=== PATIENT | male | born 1960 | race African-American/Black ===

== ENCOUNTER 2018-09-16 22:55 | Emergency (ER) | payer BC ==
[2018-09-16] MEDS ORDERED: Oxymetazoline HCl 0.05% ( 15 ML ) NASAL SCH (23:30)
== END 2018-09-17 00:22 | disposition home or self-care (01) ==
LOC: ERS 22:55
DX: R04.0 Epistaxis (principal); E78.5 Hyperlipidemia, unspecified; I10 Essential (primary) hypertension; Z86.73 Personal history of transient ischemic attack (TIA), and cerebral infarction without residual deficits; F17.210 Nicotine dependence, cigarettes, uncomplicated; Z79.899 Other long term (current) drug therapy; Z79.82 Long term (current) use of aspirin
CPT/HCPCS: 99283

== ENCOUNTER 2020-07-04 05:21 | Observation (INO) | payer BC ==
[2020-07-04] MEDS ORDERED: Nitroglycerin 0.4 MG TAB 1 EACH ONE (05:38)
[2020-07-04] MEDS ORDERED: Atropine Sulfate 1 mg/10 ml Syringe ONE (05:46)
[2020-07-04 05:54] LABS: #Basophils 0.1 thou/uL (0.0-0.2); #Eosinphils 0.1 thou/uL (0.0-0.7); #Lymphocytes 2.4 thou/uL (1.20-3.40); #Monocytes 0.5 thou/uL (0.11-0.59); #Neutrophils 4.3 thou/uL (1.40-6.50); %Basophils 0.9 % (0.0-1.0); %Eosinophils 1.5 % (0.0-10.0); %Lymphocytes 32.4 % (21.0-51.0); %Monocytes 7.1 % (0.0-10.0); %Neutrophils 58.1 % (42.0-75.0); Hemoglobin 12.6 g/dL (14.0-18.0); Mean Corpuscular Hemoglobin 29.3 pg (27.0-31.0); Mean Corpuscular Volume 86.2 fL (78.0-98.0); Mean Platelet Volume 8.1 fL (7.4-10.4); Platelet Count 257 thou/uL (130-400); RBC Distribution Width 12.8 % (11.5-14.5); White Blood Cell (WBC) Count 7.3 thou/uL (4.8-10.8)
[2020-07-04 06:11] LABS: ALT (SGPT) 27 U/L (8-55); AST (SGOT) 26 U/L (5-34); Albumin 3.6 g/dL (3.5-5.0); Alkaline Phosphatase 62 U/L (40-110); Anion Gap 13 mmol/L (10-20); BUN (Urea Nitrogen) 17 mg/dL (8.4-25.7); Bilirubin, Total 0.3 mg/dL (0.2-1.2); Calc. Creatinine Clearance 0 mL/min (70-130); Calcium 8.6 mg/dL (7.8-10.44); Carbon Dioxide 25 mmol/L (22-29); Chloride 104 mmol/L (98-107); Globulin 3.9 g/dL (2.4-3.5); Glucose 106 mg/dL (70-105); Potassium 4.1 mmol/L (3.5-5.1); Protein, Total 7.5 g/dL (6.0-8.3); Sodium 138 mmol/L (136-145)
[2020-07-04] MEDS ORDERED: Nitroglycerin 2% Ointment 1 INCH/1 GM Packet ONE (06:13)
[2020-07-04] MEDS ORDERED: Morphine 4 MG/ML VIAL ONE (06:58)
[2020-07-04 09:20] LABS: Troponin I 0.531 ng/mL (< 0.028)
[2020-07-04] MEDS ORDERED: Enoxaparin Sodium 120 MG/0.8 ML SYRINGE SC SCH (09:33)
[2020-07-04 09:43] VITALS: BMI 41.5
[2020-07-04] MEDS ORDERED: Iopamidol 370 76% 100 ML VIAL ONE (10:12)
[2020-07-04] MEDS ORDERED: Enoxaparin Sodium 30 MG/0.3 ML SYRINGE SC SCH ×2 (11:00→21:00)
[2020-07-04] MEDS ORDERED: Enoxaparin Sodium 100 MG/ML SYRINGE SC SCH ×2 (11:00→21:00)
[2020-07-04] MEDS ORDERED: Heparin 10,000 UNITS/ 10 ML VIAL ONE (11:14)
[2020-07-04] MEDS ORDERED: Verapamil 5 MG/2 ML VIAL ONE (11:14)
[2020-07-04] MEDS ORDERED: Communication Order-Pharmacy FS SCH (11:15)
[2020-07-04] MEDS ORDERED: Lidocaine 1% (PF) 30 ML VIAL ONE (11:15)
[2020-07-04] MEDS ORDERED: Nitroglycerin 100MG/250ML BOT 250 ML ONE (11:15)
[2020-07-04] MEDS ORDERED: Acetaminophen/Codeine 30-300mg Tablet PO PRN ×2 (13:00)
[2020-07-04] MEDS ORDERED: Sodium Chloride 0.9% 200 ML IV PRN (13:00)
[2020-07-04] MEDS ORDERED: Nitroglycerin 0.4 MG TAB (25 Tab Bottle) SL PRN (13:00)
[2020-07-04 16:05] LABS: Troponin I 1.491 ng/mL (< 0.028)
[2020-07-04 17:17] LABS: Cardiac Risk 3.5 (Less than 4.5)
[2020-07-04 18:18] LABS: Hemoglobin 11.8 g/dL (14.0-18.0); Platelet Count 237 thou/uL (130-400)
[2020-07-04] MEDS: Aspirin 81 mg Enteric Coated Tablet PO SCH (19:13)
[2020-07-04] MEDS: Clopidogrel Bisulfate 75 MG TAB PO SCH (19:14)
[2020-07-04] MEDS: hydrALAZINE 25 MG TAB PO SCH (20:17)
[2020-07-04] MEDS ORDERED: Simvastatin 10 MG TAB PO SCH (21:00)
[2020-07-05 01:21] LABS: SARS-CoV-2 PCR by NAA Not Detected (NotDetected)
[2020-07-05 05:22] LABS: Hemoglobin 12.4 g/dL (14.0-18.0); Mean Corpuscular HGB CONC 32.9 g/dL (32.0-36.0); Mean Corpuscular Hemoglobin 28.4 pg (27.0-31.0); Mean Corpuscular Volume 86.3 fL (78.0-98.0); Mean Platelet Volume 7.7 fL (7.4-10.4); Platelet Count 233 thou/uL (130-400); RBC Distribution Width 12.6 % (11.5-14.5); Red Blood Cell (RBC) Count 4.38 mill/uL (4.70-6.10); White Blood Cell (WBC) Count 5.8 thou/uL (4.8-10.8)
[2020-07-05 05:50] LABS: Critical Call Chem Troponin I RESULT DECREASING
[2020-07-05 06:07] LABS: Thyroid Stimulating Hormone 0.4754 uIU/mL (0.35-4.94)
[2020-07-05 06:08] LABS: CKMB 4.3 ng/mL (0-6.6)
[2020-07-05 08:01] VITALS: BP 176/79; TEMP 98
[2020-07-05] MEDS: Clopidogrel Bisulfate 75 MG TAB PO SCH (08:02)
[2020-07-05] MEDS: hydrALAZINE 25 MG TAB PO SCH (08:02)
[2020-07-05] MEDS: Aspirin 81 mg Enteric Coated Tablet PO SCH (08:02)
[2020-07-05] MEDS ORDERED: Tamsulosin HCl 0.4 MG CAP PO SCH (09:00)
[2020-07-05] MEDS ORDERED: NIFEdipine XL 90 MG TAB PO SCH (09:00)
[2020-07-05] MEDS ORDERED: Lisinopril 20 MG TAB PO SCH (09:00)
[2020-07-05] MEDS ORDERED: NIFEDIPINE 90 MG PO SCH (09:00)
== END 2020-07-05 12:00 | disposition home or self-care (01) ==
LOC: ERS 05:21 → SUATTDRO 05:21 → 2SW 06:31
PROVIDERS: ADMIT Student in an Organized Health Care Education/Training Program; ATTEND Student in an Organized Health Care Education/Training Program
PROC: 4A023N7 Measurement of Cardiac Sampling and Pressure, Left Heart, Percutaneous Approach (ICD-10-PCS; principal; 2020-07-04)
PROC: B2111ZZ Fluoroscopy of Multiple Coronary Arteries using Low Osmolar Contrast (ICD-10-PCS; 2020-07-04)
DX: R07.9 Chest pain, unspecified (principal); I10 Essential (primary) hypertension; D64.9 Anemia, unspecified; I48.91 Unspecified atrial fibrillation; E78.5 Hyperlipidemia, unspecified; G47.33 Obstructive sleep apnea (adult) (pediatric); E78.00 Pure hypercholesterolemia, unspecified; I08.8 Other rheumatic multiple valve diseases; F17.210 Nicotine dependence, cigarettes, uncomplicated; E66.9 Obesity, unspecified; Z68.41 Body mass index [BMI] 40.0-44.9, adult; Z86.73 Personal history of transient ischemic attack (TIA), and cerebral infarction without residual deficits; Z79.02 Long term (current) use of antithrombotics/antiplatelets; Z79.1 Long term (current) use of non-steroidal anti-inflammatories (NSAID); Z79.82 Long term (current) use of aspirin; Z79.899 Other long term (current) drug therapy; Z20.822 Contact with and (suspected) exposure to COVID-19
CPT/HCPCS: 36415; 71045; 80053; 80061; 82553; 82607; 82746; 84443; 84484; 85025; 85027; 87635; 93005; 93306; 93458; 96374; 96375; G0378; J0461; J1644; J2001; J2270; Q9967; U0003; U0005